=== PATIENT | female | born 1960 | race Caucasian/White ===

== ENCOUNTER 2018-05-03 08:31 | Outpatient (CLI) | payer OTHER ==
--- NOTE | 2018-05-03 09:22 | RAD ---
RIGHT HIP 2 VIEWS: Date: 05/03/18 HISTORY: 57-year-old female with history of right hip pain for months. FINDINGS: Mild degenerative changes right hip joint. Sclerotic focus in the right ilium, nonspecific, probably a bone island. Lower lumbar spine spondylosis. No acute fracture or dislocation. IMPRESSION: Degenerative changes without fracture or dislocation. POS: [facility]
== END 2018-05-03 08:32 | disposition home or self-care (01) ==
LOC: SCSRAD 08:31
PROVIDERS: ATTEND Family Medicine
DX: M70.61 Trochanteric bursitis, right hip (principal); M16.11 Unilateral primary osteoarthritis, right hip

== ENCOUNTER 2018-10-22 11:56 | Outpatient (CLI) | payer OTHER ==
--- NOTE | 2018-10-24 12:17 | MMO ---
BILATERAL SCREENING MAMMOGRAMS: Date: 10/22/18 HISTORY: Annual screening mammography. This patient's mammogram was interpreted with the assistance of computer-aided detection. COMPARISON: Prior studies obtained from [facility] on 07/26/17, 06/21/16, 06/04/15, and . FINDINGS: There is a heterogeneously dense parenchymal pattern, which may lower the sensitivity of mammography. Multiple scattered stable benign-appearing calcifications are seen in each breast. There has been i nterval enlargement of a mass within the upper outer left breast which measures 2.6 cm and previously measured approximately 2.1 cm in a similar dimension on the prior exam. No additional dominant mass or suspicious grouping of microcalcifications are seen in either breast. IMPRESSION: BIRADS 0: Incomplete: Need Additional Imaging Evaluation and/or Prior Mammograms for Comparison Spot compression 3D imaging of the left breast in CC and mediolateral projections are recommended. 90 degree mediolateral view should also be performed. Ultrasound examination should also be scheduled i f warranted at this time. The facility will notify patient of need for additional imaging services. POS: [facility]
== END 2018-10-22 11:57 | disposition home or self-care (01) ==
LOC: SCSMAMMO 11:56
PROVIDERS: ATTEND Family Medicine
DX: Z12.31 Encounter for screening mammogram for malignant neoplasm of breast (principal)
CPT/HCPCS: 77067

== ENCOUNTER 2018-11-07 12:50 | Outpatient (CLI) | payer OTHER ==
--- NOTE | 2018-11-07 14:12 | ULT ---
FOCUS ULTRASOUND OF THE LEFT BREAST: Date: 11-07-18 History: Oval mass noted in the left breast on recent mammography. FINDINGS: Focus ultrasound of the left breast at the 2 o'clock position demonstrates a simple cyst measuring ap proximately 2.1 x 1.8 x 2.1 cm. This correlates in size and location with the mammographic finding. T here are a few adjacent subcentimeter cysts as well. IMPRESSION: BIRADS category 2 - benign findings. 2.1 cm cyst at the 2 o'clock position of the left breast correla michelle with the mammographic finding. Recommend annual screening mammography. POS: OFF
== END 2018-11-07 12:51 | disposition home or self-care (01) ==
LOC: BICMAMMO 12:50
PROVIDERS: ATTEND Family Medicine
DX: N63.20 Unspecified lump in the left breast, unspecified quadrant (principal); N60.02 Solitary cyst of left breast
CPT/HCPCS: G0279

== ENCOUNTER 2021-10-24 10:21 | Outpatient (CLI) | payer OTHER | END 2021-10-24 10:22 | disposition home or self-care (01) | LOC: SCSRAD 10:21 | PROVIDERS: ATTEND Nurse Practitioner Family | DX: M79.642 Pain in left hand (principal) ==

== ENCOUNTER 2022-06-21 09:11 | Outpatient (CLI) | payer OTHER ==
[2022-06-21 11:47] LABS: #Basophils 0.1 thou/uL (0.0-0.2); #Eosinphils 0.2 thou/uL (0.0-0.7); #Lymphocytes 2.1 thou/uL (1.20-3.40); #Monocytes 0.6 thou/uL (0.11-0.59); #Neutrophils 2.5 thou/uL (1.40-6.50); %Basophils 1.2 % (0.0-1.0); %Lymphocytes 38.7 % (21.0-51.0); %Neutrophils 46.1 % (42.0-75.0); Mean Corpuscular HGB CONC 33.1 g/dL (32.0-36.0); Mean Corpuscular Hemoglobin 31.7 pg (27.0-31.0); Mean Corpuscular Volume 95.8 fL (78.0-98.0); Mean Platelet Volume 8.8 fL (7.4-10.4); Platelet Count 234 thou/uL (130-400); Red Blood Cell (RBC) Count 4.73 mill/uL (4.20-5.40); White Blood Cell (WBC) Count 5.5 thou/uL (4.8-10.8)
[2022-06-21 11:58] LABS: Bilirubin Negative (Negative); Blood, Urine Negative (Negative); Clarity Clear (Clear); Glucose, Urine (Dipstick) Normal (Negative); Ketone, Urine Negative (Negative); Leukocyte Negative Leu/uL (Negative); Nitrite Negative (Negative); Protein, Urine (Dipstick) Negative (Neg-Trace); Specific Gravity, Urine 1.018 (1.002-1.036); Urobilinogen Normal mg/dL (Less than 2); pH, Urine 7.5 (5.0-9.0)
[2022-06-21 12:09] LABS: Hemoglobin A1c 5.6 % (4.0-6.0)
[2022-06-21 12:27] LABS: ALT (SGPT) 18 U/L (8-55); AST (SGOT) 19 U/L (5-34); Albumin 4.3 g/dL (3.4-4.8); Alkaline Phosphatase 60 U/L (40-110); Anion Gap 13 mmol/L (10-20); BUN (Urea Nitrogen) 17 mg/dL (9.8-20.1); Bilirubin, Total 0.5 mg/dL (0.2-1.2); Calc. Creatinine Clearance 0 mL/min (70-130); Calcium 9.9 mg/dL (7.8-10.44); Carbon Dioxide 26 mmol/L (23-31); Cardiac Risk 3.5 (Less than 4.5); Chloride 107 mmol/L (98-107); Cholesterol 186 mg/dl (< 200 Desired); Estimated GFR 61; Globulin 2.5 g/dL (2.4-3.5); Glucose 104 mg/dL (80-115); HDL Cholesterol 53 mg/dL (>60 Neg Risk); LDL Cholesterol, Calculated 108 mg/dL; Potassium 4.6 mmol/L (3.5-5.1); Protein, Total 6.8 g/dL (5.8-8.1); Sodium 141 mmol/L (136-145); Triglycerides 125 mg/dL (Less than 150)
[2022-06-21 13:08] LABS: Thyroid Stimulating Hormone 2.2937 uIU/mL (0.35-4.94); Vitamin D, 25 Hydroxy 55.2 ng/ml (> 30.0)
[2022-06-21 13:14] LABS: Free T4 (Free Thyroxine) 0.87 ng/dL (0.70-1.48)
== END 2022-06-21 09:12 | disposition home or self-care (01) ==
LOC: SCSRAD 09:11
PROVIDERS: ATTEND Family Medicine
DX: Z00.00 Encounter for general adult medical examination without abnormal findings (principal); Z79.890 Hormone replacement therapy; Z86.16 Personal history of COVID-19
CPT/HCPCS: 36415; 71046; 80053; 80061; 81003; 82306; 83036; 84439; 84443; 85025

== ENCOUNTER 2023-08-08 13:10 | Outpatient (CLI) | payer OTHER | END 2023-08-08 13:11 | disposition home or self-care (01) | LOC: SCSRAD 13:10 | PROVIDERS: ATTEND Family Medicine | DX: M95.2 Other acquired deformity of head (principal) | CPT/HCPCS: 70260 ==

== ENCOUNTER 2024-08-25 12:51 | Outpatient (CLI) | payer OTHER | END 2024-08-25 12:52 | disposition home or self-care (01) | LOC: CT 12:51 | PROVIDERS: ATTEND Physician Assistant | DX: T63.511A Toxic effect of contact with stingray, accidental (unintentional), initial encounter (principal); M79.671 Pain in right foot ==